=== PATIENT | female | born 1965 | race Two or more races ===

== ENCOUNTER 2018-01-27 07:04 | Day surgery (SDC) | payer OTHER ==
[~2018-01-27 07:04] MED LIST: CARAFATE1 GM PO; CIPRO500 MG PO; DEXILANT60 MG PO; DOLOGESIC CAPLE1 TAB; DOXEPIN PO; FLAGYL500MG PO; GABAPENTIN800 MG; LEVSIN/SL0.125 MG SL; LEXAPRO20 MG PO; NEURONTIN800 MG; OMEPRAZOLE20 M1 PO; PERCOCET 5-3251 EACH PO; PROBIOTIC & AC1 EACH PO; SYNTHROID50 MCG; ZANTAC 7575 MG
== END 2018-01-27 10:50 | disposition home or self-care (01) ==
LOC: AMB-ENDOS 07:04
DX: D13.0 Benign neoplasm of esophagus (principal); D13.1 Benign neoplasm of stomach; D13.2 Benign neoplasm of duodenum; K57.30 Diverticulosis of large intestine without perforation or abscess without bleeding; K44.9 Diaphragmatic hernia without obstruction or gangrene; K29.70 Gastritis, unspecified, without bleeding

== ENCOUNTER 2018-12-16 02:20 | Inpatient (IN) | payer OTHER ==
[~2018-12-16] VITALS: Ht 99.1 cm; Wt 5.0 kg
== END 2018-12-21 18:25 | disposition home or self-care (01) | DRG 390 ==
LOC: ER 02:20 → SURH 12:56 → SEC-K 12:56 → SURH 16:17
PROVIDERS: ADMIT Surgery
PROC: BW21ZZZ Computerized Tomography (CT Scan) of Abdomen and Pelvis (ICD-10-PCS; principal; 2018-12-16)
DX: K56.51 Intestinal adhesions [bands], with partial obstruction (principal); K44.9 Diaphragmatic hernia without obstruction or gangrene; K29.60 Other gastritis without bleeding; E03.8 Other specified hypothyroidism; K57.30 Diverticulosis of large intestine without perforation or abscess without bleeding; J44.9 Chronic obstructive pulmonary disease, unspecified; J30.89 Other allergic rhinitis; Z88.0 Allergy status to penicillin

== ENCOUNTER 2018-12-28 13:18 | Emergency (ER) | payer OTHER ==
[~2018-12-28] VITALS: Ht 152.4 cm; Wt 51.3 kg
[2018-12-28] MEDS ORDERED: LEXAPRO20 MG (14:04)
== END 2018-12-28 19:14 | disposition home or self-care (01) ==
LOC: ER 13:18
DX: K52.9 Noninfective gastroenteritis and colitis, unspecified (principal)

== ENCOUNTER 2019-01-29 14:41 | Inpatient (IN) | payer OTHER ==
[~2019-01-29] VITALS: Ht 152.4 cm; Wt 48.1 kg
[~2019-01-29 14:41] MED LIST changes: +LEXAPRO20 MG
--- NOTE | 2019-01-29 15:06 | NUR ---
PACIENTE FEMENINA. ALERTA Y ORIENTADA EN MARIO ESFERAS LLEGA A GREYSON DE EMERGENCIAS AMBULANDO, ACOMPANADA POR FAMILIAR. PACIENTE REFIERE ESTAR PRESENTANDO DOLOR ABDOMINAL Y NAUSEAS DESDE ESTA MANANA. PACIENTE DE DRA CAMPOS LACEY.
--- NOTE | 2019-01-29 16:24 | NUR ---
PACIENTE ALERTA,ACTIVA Y ORIENTADA.SE ORIENTA DE TRATAMINETO DIAZ ORDEN MEDICA REFIERE ENTENDER.SE CANALIZA,SE LILIAN MUESTRAS DE [place] Y SE ADMINISTRAN MEDI- CAMENTOS CON MEDIDAS ASEPTICAS CORRESPONDIENTES.
--- NOTE | 2019-01-29 23:54 | NUR ---
PT ALERTA Y ORIENTADA X3 ESFERAS SE RECIBE EN CAMA CON BARANDAS ELEVADAS Y FRENOS COLOCADOS. HEPARIN LOCK E IVFLUIDS PATENTES. TRANQUILA Y SIN DIFICULTAD RESPIRATORIA, JACOB AL MOMENTO. PENDIENTE TRASLADAR A UNIDAD DE CRITICO. PT ESTABLE AL MOMENTO.
--- NOTE | 2019-01-30 06:43 | NUR ---
SE RECIBEIENTE ALERTA Y ORIENTADA DEL AREA DE OBSERVACION PACIENTE CON VENOPUCNION PATENTE DEBORAH DE EDEMA Y ERRITEMA CON .9 NSS BNAJANDO A 150 ML/HR. PACIENTE AL MOMENOT SIN DOLOR. PACIENTE CONSULTADA CON EL DR. BREWER. SE CONECTA A PACIENTE A MONITOR CARDIACO Y OXIMETRIA DE PULSO. SE ELIZABETH A PACIENTE EN CAMA BAJO OBSERVACION POR CAMBIOS EN RAMÍREZ CONDICION.
--- NOTE | 2019-01-30 07:39 | NUR ---
SE RECIBE PT ALERTA Y ORIENTADA EN TIEMPO LUGAR Y PERSONA, CONECTADA A MONITOR CARDIACO Y OXIMETRIA DE PULSO CONTINUA. SE MANTIENE CON 0.9NSS BAJANDO A 150ML/HR POR VENOPUNCION EN MANO RT PATENTE, DEBORAH DE EDEMA Y ERITEMA. PT CON SALINE LOCK EN BRAZO LT. SE MANTIENE EN CAMA CON BARANDAS SUPERIORES ELEVADAS. SE LE ORIENTA SOBRE TX AL MOMENTO, REFIERE ENTENDER. SE LE ASISTE EN ASEO PERSONAL AMBULANDO AL JOHNNY. PT PRESENTA EPISODIO DE VOMITO, SE LE NOTIFICA A DR ANGULO QUIEN ORDENA MEDICAMENTO,SE ORIENTA A PT Y SE LE ADMINISTRA DIAZ PRESCRITO, BAJO MEDIDAS ASEPTICAS PT TOLERA . PT SE MANTIENE DE SER EVALUADA POR MEDICINA INTERNA.
--- NOTE | 2019-01-30 08:25 | NUR ---
PT EVALUADA POR DR DONNELLY, PT COMIENZA A LIZZIE [place]. AL MOMENTO TOLERA.
== END 2019-02-16 13:49 | disposition home or self-care (01) | DRG 439 ==
LOC: ER 14:41 → MEDJ 01-30 07:53 → SEC-K 01-30 07:53 → MEDJ 01-30 10:56
PROVIDERS: ADMIT Student in an Organized Health Care Education/Training Program
PROC: 02HV33Z Insertion of Infusion Device into Superior Vena Cava, Percutaneous Approach (ICD-10-PCS; principal; 2019-01-31)
PROC: 3E0336Z Introduction of Nutritional Substance into Peripheral Vein, Percutaneous Approach (ICD-10-PCS; 2019-02-01)
PROC: BF37ZZZ Magnetic Resonance Imaging (MRI) of Pancreas (ICD-10-PCS; 2019-02-04)
PROC: BW21Y0Z Computerized Tomography (CT Scan) of Abdomen and Pelvis using Other Contrast, Unenhanced and Enhanced (ICD-10-PCS; 2019-02-08)
DX: K85.80 Other acute pancreatitis without necrosis or infection (principal); J90 Pleural effusion, not elsewhere classified; J98.11 Atelectasis; J44.1 Chronic obstructive pulmonary disease with (acute) exacerbation; K52.89 Other specified noninfective gastroenteritis and colitis; E03.8 Other specified hypothyroidism; Z88.0 Allergy status to penicillin; R74.0 Nonspecific elevation of levels of transaminase and lactic acid dehydrogenase [LDH]; K76.89 Other specified diseases of liver; K57.30 Diverticulosis of large intestine without perforation or abscess without bleeding

== ENCOUNTER 2019-02-20 00:23 | Emergency (ER) | payer OTHER ==
[~2019-02-20] VITALS: Ht 152.4 cm; Wt 49.9 kg
[2019-02-20] MEDS ORDERED: ENDOCET 5-3251 EACH PO (06:34)
[2019-02-20] MEDS ORDERED: PROTONIX40 MG PO ×2 (06:34→06:35)
== END 2019-02-20 06:55 | disposition home or self-care (01) ==
LOC: ER 00:23
DX: K21.9 Gastro-esophageal reflux disease without esophagitis (principal)

== ENCOUNTER 2019-04-11 09:14 | Outpatient (CLI) | payer OTHER ==
[~2019-04-11 09:14] MED LIST changes: +ENDOCET 5-3251 EACH PO; +PROTONIX40 MG PO
== END 2019-04-11 09:23 | disposition home or self-care (01) ==
LOC: TOM 09:14
DX: K66.0 Peritoneal adhesions (postprocedural) (postinfection) (principal); K85.10 Biliary acute pancreatitis without necrosis or infection
CPT/HCPCS: 74160; Q9965

== ENCOUNTER 2019-04-11 10:23 | Outpatient (CLI) | payer OTHER | END 2019-04-11 15:00 | disposition home or self-care (01) | LOC: LAB 10:23 | DX: N20.0 Calculus of kidney (principal) ==

== ENCOUNTER 2020-09-23 12:16 | Inpatient (IN) | payer OTHER ==
[~2020-09-23] VITALS: Ht 152.4 cm; Wt 52.2 kg
--- NOTE | 2020-09-23 12:49 | NUR ---
SE RECIBE PACIENTE FEMENINA DE 55 ANOS DE EDAD DESPIERTA Y ALERTA CON QUEJA PRINCIPAL DE MALESTAR ESTOMACAL Y DOLOR EN [place] PI[place]. SE LE LILIAN SIGNSO VITALES Y SE UBICA EN AREA INDICADA.
--- NOTE | 2020-09-23 13:47 | NUR ---
SE RECIBE PTE FEMENINA DE 55 YRS ALERTA CONCIENTE Y TRANAQUILA ES EVALUADA POR LA CAMRYN, MORILLO QUIEN ORDENA TRATAMIENTO LA CUAL SE EJECUTA. SE MANTIENE BAJO OBSERVACIO POR CAMBIOS.
[2020-09-26] MEDS ORDERED: CIPRO500 MG PO (15:36)
[2020-09-26] MEDS ORDERED: FLAGYL500MG PO (15:37)
[2020-09-26] MEDS ORDERED: PROTONIX40 MG PO (18:52)
[2020-09-26] MEDS ORDERED: INTESTINEX680 M1 PO (18:52)
== END 2020-09-26 15:55 | disposition home or self-care (01) | DRG 440 ==
LOC: ER 12:16 → SEC-K 19:52 → MEDI 19:52
PROVIDERS: ADMIT Internal Medicine; ATTEND Internal Medicine
PROC: BW21Y0Z Computerized Tomography (CT Scan) of Abdomen and Pelvis using Other Contrast, Unenhanced and Enhanced (ICD-10-PCS; principal; 2020-09-23)
DX: K85.90 Acute pancreatitis without necrosis or infection, unspecified (principal); K52.9 Noninfective gastroenteritis and colitis, unspecified; K21.9 Gastro-esophageal reflux disease without esophagitis; E03.9 Hypothyroidism, unspecified

== ENCOUNTER 2020-09-30 16:41 | Emergency (ER) | payer OTHER ==
[~2020-09-30] VITALS: Ht 152.4 cm; Wt 52.6 kg
[~2020-09-30 16:41] MED LIST changes: +INTESTINEX680 M1 PO
[2020-09-30] MEDS ORDERED: CARAFATE1 GM PO (22:02)
[2020-09-30] MEDS ORDERED: LEVSIN/SL0.125 MG SL (22:02)
== END 2020-09-30 22:14 | disposition home or self-care (01) ==
LOC: ER 16:41
DX: K29.60 Other gastritis without bleeding (principal); R10.13 Epigastric pain

== ENCOUNTER 2023-04-29 11:14 | Inpatient (IN) | payer OTHER ==
[~2023-04-29] VITALS: Ht 152.4 cm; Wt 64.4 kg
[2023-04-29] MEDS ORDERED: FAMOTIDINE40 MG (12:00)
[2023-04-29] MEDS ORDERED: PANTOPRAZOLE SO40 MG (12:00)
[2023-04-29] MEDS ORDERED: DOXEPIN HCL50 MG (12:00)
[2023-04-29] MEDS ORDERED: SEROQUEL25 MG (12:01)
[2023-04-29 12:48] LABS: HEMATOCRIT 42.4 % (36.0-45.00); HEMOGLOBIN 13.6 g/dL (12.0-15.00); MEAN CELL VOLUME 89.1 fL (80.00-100.00); MEAN CORPUSCULAR HEMOGLOBIN 28.5 pg (27.00-32.0); PLATELET COUNT 272 K/uL (150-450); RED BLOOD COUNT 4.76 M/uL (4.00-6.00); RED CELL DISTRIBUTION WIDTH 13.9 % (11.5-14.5)
[2023-04-29 13:07] LABS: CALCIUM 9.2 mg/dL (8.5-10.1); CREATININE SERUM 0.6 mg/dL (0.55-1.02); GFR 102.68; POTASSIUM 4.28 mEq/L (3.5-5.1)
[2023-04-29 14:19] LABS: PH,URINE 5.5 (5.0-8.0); URINE APPEARANCE Clear; URINE BILIRRUBIN Negative (NEGATIVE); URINE BLOOD Negative; URINE COLOR Yellow; URINE GLUCOSE Negative (NEGATIVE); URINE LEUKOCYTE Negative; URINE NITRATE Negative; URINE PROTEIN Negative (NEGATIVE); URINE UROBILINOGEN 0.2 E.U./dl
[2023-04-29 14:24] LABS: URINE EPITHELIAL CELLS 6.6 uL (0.0-38.8)
[2023-04-29 14:41] LABS: URINE BACTERIA 3.7 uL (0.0-1933); URINE WBC 1.3 uL (0.0-23.2)
[2023-04-29 22:40] LABS: AMYLASE 67 U/L (25-115); C-REACTIVE PROTEIN < 0.29 MG/DL (0.00-0.29); LIPASE 45 U/L (13-75)
[2023-04-30 00:33] LABS: INR 1.05; PARTIAL THROMBOPLASTIN TIME 27.4 SECONDS (22.0-34.0)
[2023-04-30 15:35] LABS: ALBUMIN 3.2 gm/dL (3.4-5.0); BILIRUBIN TOTAL 0.53 mg/dL (0.3-1.2); CALCIUM 8.5 mg/dL (8.5-10.1); CHOL HDL RATIO 2.8 (0-5.0); CREATININE SERUM 0.66 mg/dL (0.55-1.02); GFR 91.98; POTASSIUM 3.83 mEq/L (3.5-5.1); TOTAL PROTEIN 6.2 gm/dL (6.4-8.2)
[2023-05-01 08:47] LABS: HEMATOCRIT 36.2 % (36.0-45.00); HEMOGLOBIN 11.5 g/dL (12.0-15.00); MEAN CELL VOLUME 88.9 fL (80.00-100.00); MEAN CORPUSCULAR HEMOGLOBIN 28.3 pg (27.00-32.0); MEAN CORPUSCULAR HGB CONC 31.8 g/dl (32.0-36.0); PLATELET COUNT 220 K/uL (150-450); RED BLOOD COUNT 4.08 M/uL (4.00-6.00); RED CELL DISTRIBUTION WIDTH 13.7 % (11.5-14.5)
[2023-05-01 09:44] LABS: ALBUMIN 2.9 gm/dL (3.4-5.0); ALKALINE PHOSPHATASE 78 U/L (50-136); ALT/SGPT 21 U/L (12-78); ANION GAP 9 (10.0-20.0); AST/SGOT 12 U/L (15-37); BILIRUBIN TOTAL 0.44 mg/dL (0.3-1.2); BLOOD UREA NITROGEN 13 mg/dL (7-18); BUN CREA RATIO 21 (7.0-25.0); CALCIUM 8.2 mg/dL (8.5-10.1); CARBON DIOXIDE 26 mEq/L (21-32); CHLORIDE 110 mmol/L (98-107); CREATININE SERUM 0.61 mg/dL (0.55-1.02); GFR 100.74; GLUCOSE FASTING 151 mg/dL (65-100); OSMOLALITY SERUM 284 MOSM/KG (275-295); PHOSPHOROUS 3.1 mg/dL (2.5-4.9); POTASSIUM 4.25 mEq/L (3.5-5.1); SODIUM 141 mmol/L (136-145); TOTAL PROTEIN 5.9 gm/dL (6.4-8.2)
[2023-05-01 09:46] LABS: C-REACTIVE PROTEIN < 0.29 MG/DL (0.00-0.29)
[2023-05-03 07:08] LABS: HEMATOCRIT 34.1 % (36.0-45.00); HEMOGLOBIN 11.2 g/dL (12.0-15.00); MEAN CELL VOLUME 89.1 fL (80.00-100.00); MEAN CORPUSCULAR HEMOGLOBIN 29.2 pg (27.00-32.0); MEAN CORPUSCULAR HGB CONC 32.8 g/dl (32.0-36.0); PLATELET COUNT 186 K/uL (150-450); RED BLOOD COUNT 3.83 M/uL (4.00-6.00); RED CELL DISTRIBUTION WIDTH 13.7 % (11.5-14.5)
[2023-05-03 07:50] LABS: INR 1.1; PROTHROMBIN TIME 11.5 SECONDS (9.0-11.5)
[2023-05-03 07:58] LABS: ALBUMIN 2.8 gm/dL (3.4-5.0); BILIRUBIN TOTAL 0.36 mg/dL (0.3-1.2); BILIRUBIN,CONJUGATED 0.15 mg/dL (0.0-0.2); BILIRUBIN,UNCONJUGATED 0.21 mg/dL (0.0-0.6); CALCIUM 8.2 mg/dL (8.5-10.1); CHOL HDL RATIO 1.7 (0-5.0); CREATININE SERUM 0.53 mg/dL (0.55-1.02); GFR 118.48; GLOBULINA 2.9 G/DL (2.4-3.5); MAGNESIUM 1.9 mg/dL (1.8-2.4); POTASSIUM 3.64 mEq/L (3.5-5.1); TOTAL PROTEIN 5.7 gm/dL (6.4-8.2)
== END 2023-05-04 15:46 | disposition home or self-care (01) | DRG 392 ==
LOC: ER 11:14 → MEDJ 21:30
PROVIDERS: Emergency Medicine; General Practice; Internal Medicine Infectious Disease; ADMIT Internal Medicine; ATTEND Internal Medicine
PROC: BW21YZZ Computerized Tomography (CT Scan) of Abdomen and Pelvis using Other Contrast (ICD-10-PCS; 2023-04-29)
PROC: 02HV33Z Insertion of Infusion Device into Superior Vena Cava, Percutaneous Approach (ICD-10-PCS; 2023-04-30)
PROC: 0DBP8ZX Excision of Rectum, Via Natural or Artificial Opening Endoscopic, Diagnostic (ICD-10-PCS; principal; 2023-05-03)
DX: K52.89 Other specified noninfective gastroenteritis and colitis (principal); K51.30 Ulcerative (chronic) rectosigmoiditis without complications; K92.1 Melena; K21.9 Gastro-esophageal reflux disease without esophagitis; E03.9 Hypothyroidism, unspecified; G62.9 Polyneuropathy, unspecified

== ENCOUNTER 2024-06-17 14:16 | Emergency (ER) | payer OTHER ==
[~2024-06-17] VITALS: Ht 152.4 cm; Wt 52.6 kg
[~2024-06-17 14:16] MED LIST changes: +DOXEPIN HCL50 MG; +FAMOTIDINE40 MG; +PANTOPRAZOLE SO40 MG; +SEROQUEL25 MG
[2024-06-17] MEDS ORDERED: DEXAMETHASONE SODIUM PHOSPHATE 4 MG/ML VIAL IM STA (16:59)
== END 2024-06-17 18:15 | disposition home or self-care (01) ==
LOC: ER 14:18
DX: M25.512 Pain in left shoulder (principal); Z88.0 Allergy status to penicillin; Z88.6 Allergy status to analgesic agent
CPT/HCPCS: 96372; 99282; J1100

== ENCOUNTER 2024-07-28 08:51 | Emergency (ER) | payer OTHER ==
[~2024-07-28] VITALS: Ht 152.4 cm; Wt 50.8 kg
[2024-07-28] MEDS ORDERED: 0.9 % SODIUM CHLORIDE 1,000 ML IV SCH (09:17)
[2024-07-28] MEDS ORDERED: MEPERIDINE HCL 25 MG/ML AMPUL IV ONE (09:30)
[2024-07-28] MEDS ORDERED: DIATRIZOATE MEGLUMINE, SODIUM 30 ML BOTTLE ONE (09:50)
[2024-07-28 10:58] LABS: HEMATOCRIT 41.3 % (36.0-45.00); HEMOGLOBIN 13.8 g/dL (12.0-15.00); MEAN CELL VOLUME 87.5 fL (80.00-100.00); MEAN CORPUSCULAR HEMOGLOBIN 29.3 pg (27.00-32.0); MEAN CORPUSCULAR HGB CONC 33.5 g/dl (32.0-36.0); PLATELET COUNT 263 K/uL (150-450); RED BLOOD COUNT 4.72 M/uL (4.00-6.00); RED CELL DISTRIBUTION WIDTH 14.6 % (11.5-14.5)
[2024-07-28 11:27] LABS: CALCIUM 9.8 mg/dL (8.5-10.1); CREATININE SERUM 0.81 mg/dL (0.55-1.02); GFR 72.12; POTASSIUM 3.86 mEq/L (3.5-5.1)
== END 2024-07-28 15:35 | disposition home or self-care (01) ==
LOC: ER 08:53
PROVIDERS: Emergency Medicine
DX: K62.89 Other specified diseases of anus and rectum (principal); R10.9 Unspecified abdominal pain; E03.8 Other specified hypothyroidism; Z88.0 Allergy status to penicillin; Z88.6 Allergy status to analgesic agent
CPT/HCPCS: 36415; 74177; 96365; 96366; 99284; J3490; J7030; Q9965

== ENCOUNTER 2024-08-05 12:20 | Emergency (ER) | payer OTHER ==
[~2024-08-05] VITALS: Ht 152.4 cm; Wt 49.9 kg
[2024-08-05] MEDS ORDERED: ONDANSETRON HCL 2 MG/ML VIAL IV ONE (13:30)
[2024-08-05] MEDS ORDERED: 0.9 % SODIUM CHLORIDE 1,000 ML IV ONE (13:30)
[2024-08-05] MEDS ORDERED: ACETAMINOPHEN 500 MG GEL..CAP PO ONE ×2 (13:30→13:31)
[2024-08-05] MEDS ORDERED: ONDANSETRON HCL 2 MG/ML VIAL ONE (13:31)
[2024-08-05 14:11] LABS: HEMATOCRIT 38.8 % (36.0-45.00); MEAN CELL VOLUME 88.4 fL (80.00-100.00); MEAN CORPUSCULAR HEMOGLOBIN 29.6 pg (27.00-32.0); MEAN CORPUSCULAR HGB CONC 33.4 g/dl (32.0-36.0); PLATELET COUNT 238 K/uL (150-450); RED BLOOD COUNT 4.39 M/uL (4.00-6.00); RED CELL DISTRIBUTION WIDTH 13.8 % (11.5-14.5)
[2024-08-05 14:38] LABS: ALBUMIN 3.8 gm/dL (3.4-5.0); BILIRUBIN TOTAL 0.37 mg/dL (0.3-1.2); CREATININE SERUM 0.63 mg/dL (0.55-1.02); GFR 96.39; GLOBULINA 3.8 G/DL (2.4-3.5); POTASSIUM 3.79 mEq/L (3.5-5.1); TOTAL PROTEIN 7.6 gm/dL (6.4-8.2)
== END 2024-08-05 15:11 | disposition home or self-care (01) ==
LOC: ER 12:22
PROVIDERS: General Practice
DX: J11.1 Influenza due to unidentified influenza virus with other respiratory manifestations (principal); Z88.6 Allergy status to analgesic agent; Z88.0 Allergy status to penicillin; Z20.822 Contact with and (suspected) exposure to COVID-19
CPT/HCPCS: 36415; 96365; 96366; 99282; J2405; J7030